=== PATIENT | female | born 1980 | race Caucasian/White ===

== ENCOUNTER → 2020-12-23 | Outpatient (CLI) ==
[~2020-12-23] MED LIST: APRITAB PO; NAPR-849 PO; THERTAB52 PO
== END ==
LOC: M LABSMTC 09:46
PROVIDERS: ATTEND Anesthesiology
DX: Z01.812 Encounter for preprocedural laboratory examination (principal)

== ENCOUNTER 2020-12-28 06:24 | Day surgery (SDC) | payer OTHER ==
[~2020-12-28] VITALS: Ht 167.6 cm; Wt 101.7 kg
[~2020-12-28 06:24] MED LIST changes: +LIDOCAINE 1% MDV 20ML VIAL SQ PRN; +LR 1,000 ML IV ONE
[2020-12-28] MEDS ORDERED: fentaNYL 250 MCG/5 ML INJECTION (J3010) As Ordered ONE (06:55)
[2020-12-28] MEDS ORDERED: MIDAZOLAM INJ 2MG/2ML VIAL (J2250 PER 1MG) As Ordered ONE (06:55)
[2020-12-28] MEDS ORDERED: propofoL 200 MG/20 ML VIAL As Ordered ONE (06:56)
[2020-12-28] MEDS ORDERED: LIDOCAINE 2% 100MG/5ML SDV (FOR ANES.) As Ordered ONE (06:56)
[2020-12-28] MEDS ORDERED: ePHEDrine SULFATE 25 MG/5 ML(5MG/ML) SYRINGE As Ordered ONE (06:56)
[2020-12-28] MEDS ORDERED: dexameTHASONE 4 MG/ML 1ML VIAL (J1100 PER 1MG) As Ordered ONE (06:56)
[2020-12-28] MEDS ORDERED: ROCURONIUM BROMIDE 50 MG/5 ML VIAL As Ordered ONE (06:56)
[2020-12-28] MEDS ORDERED: SUGAMMADEX SODIUM 500 MG/5 ML VIAL (BRIDION) As Ordered ONE (06:56)
[2020-12-28] MEDS ORDERED: PHENYLephrine 500MCG 5ML (100MCG/ML) SYRINGE As Ordered ONE (06:56)
[2020-12-28] MEDS ORDERED: ONDANSETRON 4MG/2ML VIAL As Ordered ONE (06:58)
[2020-12-28] MEDS ORDERED: ACETAMINOPHEN 1000MG 100ML IV BTL (OFIRMEV) (J0131 PER 10MG) As Ordered ONE (07:01)
[2020-12-28 07:11] LABS: HEMATOCRIT 44.5 % (36.0-47.0); HEMOGLOBIN 14.9 g/dl (12.0-15.5); MEAN CORPUSCULAR HEMOGLOBIN 29.7 pg (27.0-33.0); MEAN CORPUSCULAR HGB CONC 33.5 g/dl (32.0-36.5); MEAN CORPUSCULAR VOLUME 88.6 fl (80.0-96.0); PLATELET COUNT, AUTOMATED 355 10^3/uL (150-450); RED BLOOD COUNT 5.02 10^6/uL (4.00-5.40)
[2020-12-28] MEDS ORDERED: VASOPRESSIN INJ 20 UNITS/ML VIAL As Ordered ONE (07:19)
[2020-12-28 07:29] LABS: HCG, SERUM QUALITATIVE NEGATIVE (NEGATIVE)
[2020-12-28] MEDS ORDERED: SCOPOLAMINE 1MG TRANSDERMAL PATCH TOP ONE (07:35)
[2020-12-28] MEDS: ceFAZolin SOD 2 GM in IV 1 EA IV ONE (07:45)
[2020-12-28] MEDS: fentaNYL 100 MCG/2 ML INJECTION (J3010) IV PRN ×3 (10:40→13:05)
[2020-12-28] MEDS ORDERED: fentaNYL 100 MCG/2 ML INJECTION (J3010) As Ordered ONE (10:52)
[2020-12-28] MEDS ORDERED: MORPHINE 1MG/ML IN 0.9% NACL 100ML IV BAG As Ordered ONE (11:09)
[2020-12-28] MEDS ORDERED: ONDANSETRON 4MG/2ML VIAL IV PRN (11:10)
[2020-12-28] MEDS ORDERED: METOCLOPRAMIDE INJ 10MG/2ML VIAL (J2765 PER 1) IV PRN (11:10)
[2020-12-28] MEDS ORDERED: LR 1,000 ML IV SCH (11:10)
[2020-12-28] MEDS ORDERED: PERCOCET 5MG/325MG TAB PO PRN (11:10)
[2020-12-28] MEDS ORDERED: NALBUPHINE HCL 10 MG/ML AMP (J2300) IV PRN (11:15)
[2020-12-28] MEDS ORDERED: MORPHINE 1MG/ML IN 0.9% NACL 100ML IV BAG IV PRN (11:15)
[2020-12-28] MEDS ORDERED: diphenhydrAMINE 50MG/ML VIAL (J1200) IV PRN (11:15)
[2020-12-28] MEDS ORDERED: EPIDURAL/PCA KEYS XX PRN (11:15)
[2020-12-28] MEDS ORDERED: NALOXONE INJ 0.4MG/1ML VIAL (J2310 PER 1MG) IV PRN (11:15)
--- NOTE | 2020-12-28 12:32 | RO ---
OPERATIVE NOTE DATE OF OPERATION: 12/28/2020 PREOPERATIVE DIAGNOSIS/INDICATIONS FOR SURGERY: Symptomatic pelvic prolapse. POSTOPERATIVE DIAGNOSIS: Symptomatic pelvic prolapse. PROCEDURE: Total vaginal hysterectomy with left salpingectomy she retains the distal portion of her right tube and both ovaries; she had sacrospinous suspension with anterior and posterior repair and cystourethroscopy. SURGEON: Radha Mora MD SALES CORRESPONDENCE CLERK: None. ANESTHESIA: General endotracheal anesthesia. BRIEF DESCRIPTION OF PROCEDURE AND FINDINGS: Aracelis was brought to the operating room where sufficient general endotracheal anesthesia was induced and she was prepped, draped and positioned in usual sterile fashion. Bladder was emptied and the anterior and posterior aspects of the cervix grasped with single tooth tenacula. Circumferential incision was made around the base of the cervix and the cardinal ligaments were then isolated, clamped, transected and ligated using Martinez clamps which were used throughout this portion of the case and #0 Vicryl suture. Carefully isolated, clamped, transected and ligated the uterosacral ligaments which were held for later reattachment to the cuff. We had entered posteriorly and the dissection then carried around anteriorly to displace the bladder and then the uterine vasculature was carefully clamped, transected and ligated in sequential fashion along ;the lateral aspect of the uterus which was then delivered. The right tube was scarred against the ovary and in this young woman I did not want to disrupt her ovarian function so I could not get the fimbria on the right side, the proximal stump of the tube, on the left side though we were able to get fimbria without disrupting the ovary. Both ovaries were normal. I closed the peritoneum and secured the angles and reconnected the uterosacrals. I then did the dissection for the superior aspect of the anterior repair and oversewed that with 2-0 Vicryl. I then continued the dissection of the vaginal tissues away from the underlying tissues and dissected out to the patient's right side for the sacrospinous suspension and having isolated the sacrospinous ligament we then placed two Anchorsure anchors into the sacrospinous ligament, each of those anchors carried two 2-0 Maxon prolonged absorbable sutures. These were brought out in four-point suspension of the vaginal cuff in typical fashion. We then closed the cuff before bringing those up, we brought them up under one throw, holding them under tension and cystourethroscopy confirmed normal jets of urine bilaterally. We were able to complete the throws on those sutures. Having completed the anterior repair and support of the vaginal cuff we then turned our attention to the perineal repair and posterior repair. She did still have some laxity there although the anterior correction was good. We certainly do not want to create vaginal shorting of any excess amount in this only 40-year-old woman. We did remove an inverted triangle of tissue at the perineum and then dissected posteriorly, re-supporting the rectovaginal septal defects and then re-supporting the rectovaginal septum to the perineal body and re-supporting the perineal body and then closing the vaginal tissues over this. A small amount of redundant tissue was removed but not much, again I did not want to overcorrect in this young woman. We confirmed lack of injury to the bowel or bladder and the procedure was ended. ESTIMATED BLOOD LOSS: For the procedure about 30 mL. FLUIDS: Crystalloid. COMPLICATIONS: None. CONDITION AND DISPOSITION: Aracelis tolerated the procedure well and was recovering in the recovery room in good condition.
[2020-12-28 12:35] VITALS: BP 127/74
[2020-12-28] MEDS: LR 1,000 ML IV SCH ×2 (13:15→20:39)
[2020-12-28 14:35] VITALS: BP 130/67
[2020-12-28 15:35] VITALS: BP 130/72
[2020-12-28 16:35] VITALS: BP 139/71
[2020-12-28 17:35] VITALS: BP 130/72
[2020-12-28 22:00] VITALS: BP 120/65
[2020-12-29 02:00] VITALS: BP 120/62
[2020-12-29] MEDS: LR 1,000 ML IV SCH (04:39)
[2020-12-29 06:00] VITALS: BP 129/63
[2020-12-29] MEDS ORDERED: NORCO, ANEXSIA 5/325MG TABLET (HYDROcodone/ACETAMINOPHEN) PO PRN (06:00)
[2020-12-29 06:12] LABS: HEMOGLOBIN 13.2 g/dl (12.0-15.5); MEAN CORPUSCULAR HEMOGLOBIN 29.7 pg (27.0-33.0); MEAN CORPUSCULAR VOLUME 89.9 fl (80.0-96.0); PLATELET COUNT, AUTOMATED 318 10^3/uL (150-450); RED BLOOD COUNT 4.45 10^6/uL (4.00-5.40); WHITE BLOOD COUNT 13.9 10^3/uL (4.0-10.0)
[2020-12-29] MEDS ORDERED: IBUP-1022 PO (08:33)
[2020-12-29] MEDS ORDERED: HYDR-3715 PO (08:33)
== END 2020-12-29 09:55 | disposition home or self-care (01) ==
LOC: M SDC 06:24 → M MSPAV 12:27 → M SDC 12-29 09:55
PROVIDERS: ATTEND Obstetrics & Gynecology
DX: N81.9 Female genital prolapse, unspecified (principal); K21.9 Gastro-esophageal reflux disease without esophagitis; Z79.899 Other long term (current) drug therapy
CPT/HCPCS: 36415; 57260; 57282; 58262; 84703; 85027; 86850; 86900; 86901; 88307; 96360; 96361; C1713; J0131; J0690; J1100; J2250; J2370; J2405; J3010

== ENCOUNTER → 2022-09-20 | Outpatient (CLI) | payer OTHER ==
[~2022-09-20] MED LIST changes: +HYDR-3715 PO; +IBUP-1022 PO; -LIDOCAINE 1% MDV 20ML VIAL SQ PRN; -LR 1,000 ML IV ONE
[2022-09-20 18:55] LABS: HEPATITIS B SURFACE ANTIGEN NEGATIVE (NEGATIVE)
[2022-09-20 19:07] LABS: HIV 1&2 SCREEN CENTAUR NEGATIVE (NEGATIVE)
[2022-09-20 19:17] LABS: GC DNA AMPLIFICATION NEGATIVE (NEGATIVE)
== END ==
LOC: M PLALAB 14:23
PROVIDERS: ATTEND Advanced Practice Midwife
DX: Z12.4 Encounter for screening for malignant neoplasm of cervix (principal)